=== PATIENT | female | born 1950 | race Asian ===

== ENCOUNTER 2025-04-26 10:03 | Emergency (ER) | payer MEDICAID ==
[~2025-04-26] VITALS: Ht 157.5 cm; Wt 58.8 kg
[2025-04-26] MEDS ORDERED: LOSA-416 PO (11:33)
[2025-04-26] MEDS ORDERED: POLY119P2 PO (11:33)
[2025-04-26] MEDS ORDERED: NAPR-1168 PO (11:33)
[2025-04-26] MEDS ORDERED: ATOR10TA87 PO (11:33)
[2025-04-26] MEDS ORDERED: NIFE-128 PO (11:33)
--- NOTE | 2025-04-26 11:34 | Physician Documentation ---
History of Present Illness ~ General Chief Complaint: See Chief Complaint Stated Complaint: SWOLLEN LYMPH NODE Time Seen by MD: 11:12 [facility]: Ambulatory History of Present Illness Initial Comments The patient is a 75-year-old female with a history of endometrial cancer diagnosed about five months ago who presents with a three day history of a tender lump in the right side of her neck. She denies any recent illness including sore throat, cough, cold symptoms. Her temperature at home was 99.6, she reports. Medication Reconciliation Allergies: Coded Allergies: No Known Allergies (Unverified , 04/26/25) Scheduled Atorvastatin Calcium* (Lipitor*), 1 TAB PO DAILY, (Reported) Losartan* (Cozaar*), 1 TAB PO DAILY, (Reported) Naproxen (Naproxen), 1 TAB PO Q12H, (Reported) Nifedipine (Nifedipine Er), 1 TAB PO DAILY, (Reported) Polyethylene Glycol 3350 (Miralax), 17 GM PO DAILY, (Reported) Review of Systems ROS Constitutional: Denies chills, fatigue, fever, weight gain or weight loss. HEENT: Denies hearing loss, sinus pressure or visual changes. Neck: Tender lump right side for the past three days Respiratory: Denies cough, shortness of breath or wheezing. Cardiovascular: Denies chest pain, pain while walking (claudication), edema or palpitations. Gastrointestinal: Denies abdominal pain, blood in stool, constipation, diarrhea, heartburn, loss of appetite, nausea or vomiting. Genitourinary: Denies painful urination (dysuria), excessive amount of urine (polyuria) or urinary frequency. Metabolic/Endocrine: Denies cold intolerance, heat intolerance, excessive thirst (polydipsia) or excessive hunger (polyphagia). Neurological: Denies dizziness, extremity numbness, extremity weakness, headaches, seizures or tremors. Psychiatric: Denies anxiety or depression. Integumentary: Denies breast discharge, breast lump, hives, mole change(s), rash or skin lesion. Musculoskeletal: Denies back pain, joint pain, joint swelling or neck pain. Hematologic: Denies easily bleeding, easily bruises, lymphedema or issues with blood clots. Immunologic: Denies food allergies or seasonal allergies. Physical Exam Physical Exam Vital Signs: Temperature: 98.2, Source: Oral, Heart Rate: 82, Respiratory Rate: 14, BP: 121/79, Pulse Oximetry: 97, Weight: 58.800 Oxygen Flow Rate: 0 Physical Exam Physical Exam Vitals and nursing note reviewed. Constitutional: General: Patient is awake, alert, oriented x 4 in no acute distress and well appearing. Speech is clear and lucid. Appearance: Normal appearance. Patient is not ill-appearing, toxic-appearing or diaphoretic. HENT: Head: Normocephalic and atraumatic. Mouth/Throat: Mouth: Mucous membranes are moist. Pharynx: Oropharynx is clear. Eyes: General: No scleral icterus. Extraocular Movements: Extraocular movements intact. Pupils: Pupils are equal, round, and reactive to light. Neck: Supple, no Kernig or Brudzinski sign. There is an old mature scar overlying an area of tenderness. The patient reports that she had something done there when she was quite young ( or toddler). No overlying redness or streaking. No fluctuance. The area is movable. Cardiovascular: Rate and Rhythm: Normal rate and regular rhythm. Heart sounds: No murmur heard. Pulmonary: Effort: No respiratory distress. Breath sounds: No wheezing, rhonchi or rales. Abdominal: General: There is no distension. Palpations: There is no fluid wave, hepatomegaly or mass. Tenderness: There is no abdominal tenderness. There is no guarding. Musculoskeletal: General: No swelling or deformity. Skin: Coloration: Skin is not jaundiced. Findings: No erythema or rash. Neurological: Mental Status: Patient is alert. Progress Results/Orders Results/Orders Orders - AMIE NAVARRETE MD Covid19 Binax Poc Result Entry (04/26/25 11:27) Cult Throat + R/O Beta Strep (04/26/25 12:05) Completed Orders - AMIE NAVARRETE MD C-Reactive Protein (04/26/25 11:27) Cbc/Diff (04/26/25 11:27) CMP (04/26/25 11:27) Strep A Rapid (04/26/25 11:27) ESR (04/26/25 11:27) Vital Signs 04/26/25 04/26/25 04/26/25 04/26/25 10:15 11:08 11:12 12:51 Temp 97.4 98.2 Pulse 80 82 60 Resp 16 14 17 B/P (MAP) 122/73 121/79 (93) 110/68 (82) Pulse Ox 96 97 96 O2 Flow Rate 0 0 Laboratory Tests Test 04/26/25 11:35 04/26/25 11:45 White Blood Count 5.2 Red Blood Count 4.50 Hemoglobin 12.7 Hematocrit 38.1 Mean Corpuscular Volume 84.8 Mean Corpuscular Hemoglobin 28.3 Mean Corpuscular Hemoglobin Concent 33.3 Red Cell Distribution Width 13.4 Platelet Count 168 Mean Platelet Volume 8.2 Neutrophils (%) (Auto) 56.6 Lymphocytes (%) (Auto) 33.7 Monocytes (%) (Auto) 7.8 Eosinophils (%) (Auto) 1.1 Basophils (%) (Auto) 0.8 Neutrophils # (Auto) 2.9 Lymphocytes # (Auto) 1.7 Monocytes # (Auto) 0.4 Eosinophils # (Auto) 0.1 Basophils # (Auto) 0.0 CBC Comment Erythrocyte Sedimentation Rate 12 Sodium Level 143 Potassium Level 4.4 Chloride Level 108 H Carbon Dioxide Level 32.0 Anion Gap 3 L Blood Urea Nitrogen 14 Creatinine 0.67 Estimated GFR/1.73 m2 86 BUN/Creatinine Ratio 20.9 H Glucose Level 103 Calcium Level 9.0 Total Bilirubin 0.4 Aspartate Amino Transf (AST/SGOT) 18 Alanine Aminotransferase (ALT/SGPT) 17 Alkaline Phosphatase 37 L C-Reactive Protein 0.53 H Total Protein 7.6 Albumin 3.6 Globulin 4.0 Albumin/Globulin Ratio 0.9 L Chemistry Comments SARS-CoV-2 Antigen (Rapid) Negative Group A Streptococcus Rapid Negative Medical Decision Making Additional information obtaine: old records, family Findings This 75-year-old female presents with a tender lymph node in the right side of her anterior neck. She has no constitutional symptoms. I have ordered laboratory studies. Laboratory data are reassuring. I am going to discharge the patient on Keflex and close follow-up with her PCP. Differential Diagnosis The differential diagnosis for an enlarged lymph node depends on whether the lymphadenopathy is localized or generalized, with most cases being benign and self-limited. Most Likely Diagnoses: Reactive viral lymphadenitis Self-limited viral illnesses are the most common cause of lymphadenopathy, typically resolving within 2-3 weeks. Bacterial lymphadenitis Unilateral lymphadenopathy with erythema, tenderness, or nodes larger than 2-3 cm suggests bacterial infection, most commonly from Staphylococcus aureus or group A Streptococcus. Infectious mononucleosis (EBV) Presents with bilateral posterior cervical, axillary, and inguinal lymphadenopathy, along with fever, fatigue, and pharyngitis; lymphadenopathy appears within the first week and improves over 2-3 weeks. Cat-scratch disease (Bartonella henselae) Characterized by a papule or pustule at the inoculation site with enlarged, tender lymph nodes developing proximal to the site 1-3 weeks after cat exposure. Tuberculosis Can present with persistent lymphadenopathy, particularly cervical nodes, often accompanied by systemic symptoms like fever, weight loss, and night sweats; diagnosis is frequently delayed due to the insidious nature of symptoms. Medication-induced lymphadenopathy Drug reactions can cause generalized lymphadenopathy with fever, rash, and arthralgias. Autoimmune diseases Rheumatoid arthritis, systemic lupus erythematosus, and Sjgren's syndrome can present with lymphadenopathy, often generalized and accompanied by constitutional symptoms and joint involvement. Most Important Not to Miss Diagnoses: Lymphoma Typically presents as painless adenopathy; nodes that are hard, larger than 2 cm, or matted/fused to surrounding structures raise concern, particularly if epitrochlear or supraclavicular nodes are involved. Systemic B symptoms (fever, night sweats, unexplained weight loss) suggest advanced disease. Diagnosis requires open lymph node biopsy. Metastatic solid tumor Suspicious features include hard, fixed nodes larger than 2 cm, particularly in supraclavicular or epitrochlear regions; imaging features such as central necrosis, short axis diameter >22.5 mm, and high SUVmax on PET-CT suggest malignancy. Biopsy is essential for diagnosis. Leukemia May present with generalized lymphadenopathy along with constitutional symptoms; initial workup should include complete blood count with differential looking for leukopenia, thrombocytopenia, or anemia, followed by peripheral blood smear and bone marrow biopsy if abnormalities are found. Departure Disposition: 01 HOME / SELF CARE / HOMELESS Impression: Primary Impression: Lymph node symptom Condition: Stable Additional Instructions: I have sent a prescription for an antibiotic to your pharmacy. Please take it as directed. It is important to see your doctor or primary care provider. Emergency care may be incomplete without proper follow-up. Symptoms sometimes change or new symptoms might arise after you leave the emergency department. It is important that you call your doctor if you become worse in any way, or return to the emergency department. You are strongly urged to follow-up with your physician to assure complete and thorough care. Please call your doctor's office today, and informed them that you were seen in the emergency department, and that you need to be seen immediately for close follow-up. If you do not have a primary care doctor we encourage you to proactively seek a local physician for close follow-up. Consider local clinics, [facility], or local [facility]. Prior to discharge we spoke at length concerning symptoms that would merit reevaluation, but please return to the emergency department for any symptoms that are concerning to you, and we will be happy to continue your evaluation and treatment. Please note you can always return to the emergency department if you are having difficulty coordinating close follow-up. If medications were prescribed, you should fill them at your local pharmacy immediately and take only as prescribed. Bring your new medications to your doctors follow-up visit to discuss any changes that would be necessary. Please check [facility] for any results you did not receive in the Emergency Department: often we are unable to get all your tests back before you leave, and these tests need to be reviewed by your PCP and yourself. You can also call Medical Records if you are unable to access the internet to see [facility]. Return to the emergency department immediately for worsening chest pain, difficulty breathing, sweating, or other concerning emergent symptoms. Referrals: NO PRIMARY CARE PROVIDER (PCP) Prescriptions Cephalexin*Monohydrate* (Keflex*) 500 Mg Capsule 2 CAP PO BID, #20 CAP Prov: AMIE NAVARRETE MD 04/26/25 Education Educated: Patient Educated regarding: diagnosis, treatment, prognosis, need for follow up Signature Scribe Signature: . Attestation: . AMIE NAVARRETE MD Apr 26, 2025 11:34
[2025-04-26 11:48] LABS: MEAN PLATELET VOLUME 8.2 FL (7.4-10.4); RED CELL DISTRIBUTION WIDTH 13.4 % (11.5-14.5)
[2025-04-26 11:58] LABS: CREATININE 0.67 MG/DL (0.40-0.90); TOTAL CARBON DIOXIDE 32.0 MMOL/L (24-32); eCRCL 59 ML/MIN; eGFR 86 ML/MIN
[2025-04-26 12:05] LABS: STREP A SCREEN NEGATIVE (Neg)
[2025-04-26] MEDS ORDERED: CEPH-585 PO (13:47)
[2025-04-26 13:56] VITALS: BP 123/71; PULSE 60; RESP 20; TEMP 98.2; O2SAT 98
== END 2025-04-26 14:06 | disposition home or self-care (01) ==
LOC: ER 10:04
DX: R59.9 Enlarged lymph nodes, unspecified (principal); Z85.42 Personal history of malignant neoplasm of other parts of uterus; Z79.899 Other long term (current) drug therapy; Z20.822 Contact with and (suspected) exposure to COVID-19
CPT/HCPCS: 36415; 80053; 85025; 85651; 86140; 87081; 87811; 87880; 99283